=== PATIENT | female | born 1935 | race Caucasian/White ===

== ENCOUNTER 2019-05-18 12:25 | Emergency (ER) | payer MEDICARE, MEDICAID ==
[~2019-05-18] VITALS: Ht 165.1 cm; Wt 50.9 kg
[~2019-05-18 12:25] MED LIST: ASPI81TA52 PO; FAMO-128 PO
[2019-05-18] MEDS ORDERED: clindamycin phosphate 150mg/ml inj. IM ONE (13:25)
[2019-05-18] MEDS ORDERED: CLIN-96 PO (13:26)
[2019-05-18 14:22] VITALS: BP 177/79
== END 2019-05-18 14:23 | disposition home or self-care (01) ==
LOC: ER 12:26
DX: S81.832A Puncture wound without foreign body, left lower leg, initial encounter (principal); L03.116 Cellulitis of left lower limb; Z88.0 Allergy status to penicillin; Z79.82 Long term (current) use of aspirin; Z79.2 Long term (current) use of antibiotics; Z98.890 Other specified postprocedural states; X58.XXXA Exposure to other specified factors, initial encounter; Y93.89 Activity, other specified; Y92.89 Other specified places as the place of occurrence of the external cause; Y99.8 Other external cause status
CPT/HCPCS: 96372; 99284; J3490

== ENCOUNTER 2019-05-19 16:59 | Emergency (ER) | payer MEDICARE, MEDICAID ==
[~2019-05-19] VITALS: Ht 165.1 cm; Wt 50.9 kg
[~2019-05-19 16:59] MED LIST changes: +CLIN-90 PO
[2019-05-19 19:28] VITALS: BP 178/82
== END 2019-05-19 19:31 | disposition home or self-care (01) ==
LOC: ER 17:00
DX: L03.116 Cellulitis of left lower limb (principal); Z98.890 Other specified postprocedural states; Z88.0 Allergy status to penicillin; Z79.82 Long term (current) use of aspirin; Z79.2 Long term (current) use of antibiotics; Z79.899 Other long term (current) drug therapy
CPT/HCPCS: 99283